=== PATIENT | male | born 1960 | race Caucasian/White ===

== ENCOUNTER 2020-12-03 15:34 | Emergency (ER) | payer OTHER ==
[~2020-12-03 15:34] MED LIST: BUSPIRONE HCL15 MG PO; CELEXA20 MG PO; COLESTID 1GM TAB1 GM PO; DITROPAN XL10 MG PO; LEVETIRACETAM500 MG PO; NEURONTIN300 MG PO; NITROQUIK SL0.4 MG SL; NOVOLOG MI100 UNIT/3 SC; PRINIVIL10 MG PO; VIBRAMYCIN100 MG PO; VIMPAT200 MG PO; XANAX0.5 MG PO
[2020-12-03 19:30] LABS: BASOPHIL 0.5 % (0-2); EOSINOPHIL 2.4 % (0-5); HCT 47.4 % (42.0-52.0); HGB 15.7 g/dl (13.2-18.0); LYMPHOCYTE 13.9 % (15-48); MCH 28.3 pg (25.0-31.0); MCHC 33.1 g/dL (32.0-36.0); MCV 85.4 fL (78.0-100.0); MONOCYTE 12.4 % (0-12); MPV 10.1 fL (6.0-9.5); NEUTROPHIL 70.1 % (41-80); NRBC 0; PLT 224 K/uL (150-400); RBC 5.55 M/uL (4.70-6.00); RDW 14.1 % (11.5-14.0); WBC 5.9 K/uL (4.0-10.5)
[2020-12-03 19:50] LABS: BILIRUBIN - TOTAL 0.6 mg/dL (0.2-1.0); BUN/CREAT RATIO (CALC) 23.5 RATIO; CREATININE 0.81 mg/dL (0.67-1.17); GLOBULIN (CALCULATION) 4.8 g/dL; POTASSIUM 5.2 mmol/L (3.5-5.1); TOTAL PROTEIN 8.8 g/dL (6.4-8.2)
[2020-12-03 23:43] LABS: BILIRUBIN NEGATIVE (NEGATIVE); BLOOD NEGATIVE Ery/uL (NEGATIVE); CLARITY CLEAR (CLEAR); COLOR YELLOW (YELLOW); GLUCOSE (U) 3+ mg/dL (NORMAL); LEUKOCYTES NEGATIVE Leu/uL (NEGATIVE); NITRITE NEGATIVE (NEGATIVE); PROTEIN NEGATIVE (NEGATIVE); SPECIFIC GRAVITY 1.025 (1.001-1.030); UROBILINOGEN 0.2 mg/dL (0.2-1.0)
[2020-12-03 23:50] LABS: MUCOUS MODERATE; URINARY WBC RARE
== END 2020-12-04 01:00 | disposition home or self-care (01) ==
LOC: FER 15:34
PROVIDERS: Physician Assistant
DX: R07.89 Other chest pain (principal); I10 Essential (primary) hypertension; E11.9 Type 2 diabetes mellitus without complications; Z88.5 Allergy status to narcotic agent; Z87.891 Personal history of nicotine dependence; Z20.822 Contact with and (suspected) exposure to COVID-19
CPT/HCPCS: 36415; 71046; 80053; 81001; 84484; 85025; 93005; J7030; U0002

== ENCOUNTER 2020-12-10 20:38 | Emergency (ER) | payer OTHER ==
[2020-12-10 21:28] LABS: BASOPHIL 0.5 % (0-2); EOSINOPHIL 1.6 % (0-5); HCT 43.3 % (42.0-52.0); HGB 14.6 g/dl (13.2-18.0); LYMPHOCYTE 17.6 % (15-48); MCH 28.3 pg (25.0-31.0); MCHC 33.7 g/dL (32.0-36.0); MCV 84.1 fL (78.0-100.0); MONOCYTE 7.1 % (0-12); MPV 9.3 fL (6.0-9.5); NEUTROPHIL 72.7 % (41-80); NRBC 0; PLT 260 K/uL (150-400); RBC 5.15 M/uL (4.70-6.00); WBC 10.7 K/uL (4.0-10.5)
[2020-12-10 21:40] LABS: ALBUMIN 3.9 g/dL (3.4-5.0); ALKALINE PHOSHATASE 105 U/L (46-116); ALT 123 U/L (16-63); AST 47 U/L (15-37); BILIRUBIN - TOTAL 0.4 mg/dL (0.2-1.0); BUN 12 mg/dL (7-18); BUN/CREAT RATIO (CALC) 14.8 RATIO; CHLORIDE 105 mmol/L (98-107); CO2 (BICARBONATE) 31 mmol/L (21-32); CPK 200 U/L (39-308); CREATININE 0.81 mg/dL (0.67-1.17); GLOBULIN (CALCULATION) 3.8 g/dL; GLUCOSE 85 mg/dL (74-106); POTASSIUM 3.5 mmol/L (3.5-5.1); TOTAL PROTEIN 7.7 g/dL (6.4-8.2)
[2020-12-10 21:42] LABS: LACTIC ACID 1.6 mmol/L (0.4-1.9)
== END 2020-12-11 02:05 | disposition other institution (70) ==
LOC: FER 20:38
PROVIDERS: Emergency Medicine Emergency Medical Services
DX: S05.42XA Penetrating wound of orbit with or without foreign body, left eye, initial encounter (principal); S40.812A Abrasion of left upper arm, initial encounter; H21.02 Hyphema, left eye; H11.32 Conjunctival hemorrhage, left eye; E11.9 Type 2 diabetes mellitus without complications; Z79.4 Long term (current) use of insulin; Y04.0XXA Assault by unarmed brawl or fight, initial encounter; Y92.009 Unspecified place in unspecified non-institutional (private) residence as the place of occurrence of the external cause
CPT/HCPCS: 36415; 70450; 70486; 71260; 72125; 73030; 80053; 82550; 83605; 85025; 93005; 96374; 96375; 96376; G0480; J0690; J1170; J2405; J7030; Q9967